=== PATIENT | female | born 1970 | race African-American/Black ===

== ENCOUNTER 2017-11-04 12:04 | Outpatient (CLI) | payer MEDICARE | END 2017-11-04 12:05 | disposition home or self-care (01) | LOC: BICRAD 12:04 | DX: M79.644 Pain in right finger(s) (principal) ==

== ENCOUNTER 2017-11-05 13:18 | Outpatient (CLI) | payer MEDICARE | END 2017-11-05 13:19 | disposition home or self-care (01) | LOC: BICMAMMO 13:18 | PROVIDERS: ATTEND Family Medicine | DX: Z12.31 Encounter for screening mammogram for malignant neoplasm of breast (principal); R92.1 Mammographic calcification found on diagnostic imaging of breast | CPT/HCPCS: 77063; 77067 ==

== ENCOUNTER 2020-01-23 13:14 | Emergency (ER) | payer SELFPAY ==
[2020-01-23] MEDS ORDERED: Acetaminophen 500 MG TAB ONE ×2 (13:26→13:27)
[2020-01-24 10:56] LABS: SARS-CoV-2 MS2 Positive; SARS-CoV-2 N Gene Negative; SARS-CoV-2 S Gene Negative; SARS-CoV-2 by NAA Not Detected (NotDetected); SARS-CoV-2 orf1ab Negative
== END 2020-01-23 14:12 | disposition home or self-care (01) ==
LOC: ERS 13:14
DX: J11.1 Influenza due to unidentified influenza virus with other respiratory manifestations (principal); Z20.828 Contact with and (suspected) exposure to other viral communicable diseases; F17.210 Nicotine dependence, cigarettes, uncomplicated
CPT/HCPCS: 87635; 87804; 99283; U0003

== ENCOUNTER 2021-11-10 10:25 | Outpatient (CLI) | payer MEDICARE, OTHER | END 2021-11-10 10:26 | disposition home or self-care (01) | LOC: BICMAMMO 10:25 | PROVIDERS: ATTEND Family Medicine | DX: Z12.31 Encounter for screening mammogram for malignant neoplasm of breast (principal) | CPT/HCPCS: 77063; 77067 ==

== ENCOUNTER 2023-08-16 03:32 | Emergency (ER) | payer OTHER, MEDICARE ==
[2023-08-16] MEDS ORDERED: methylPREDNISolone Sod Succ/PF 125 MG/2 ML VIAL ONE (03:43)
[2023-08-16] MEDS ORDERED: Ondansetron ODT 4 MG TAB ONE (03:43)
[2023-08-16] MEDS ORDERED: Morphine 4 MG/ML VIAL ONE (03:43)
== END 2023-08-16 04:53 | disposition home or self-care (01) ==
LOC: ERS 03:32
DX: M46.1 Sacroiliitis, not elsewhere classified (principal); F17.210 Nicotine dependence, cigarettes, uncomplicated; Z55.6 Problems related to health literacy
CPT/HCPCS: 96372; 99283; J2270; J2930; Q0162

== ENCOUNTER 2024-03-03 15:24 | Emergency (ER) | payer OTHER ==
[2024-03-03] MEDS ORDERED: Ketorolac Tromethamine 30 MG (1 mL) VIAL ONE (16:27)
[2024-03-03] MEDS ORDERED: Cyclobenzaprine 10 MG TAB ONE (16:27)
[2024-03-03] MEDS ORDERED: traMADol HCl 50 MG TAB ONE (16:28)
[2024-03-03] MEDS ORDERED: Ondansetron ODT 4 MG TAB ONE (16:28)
== END 2024-03-03 17:20 | disposition home or self-care (01) ==
LOC: ERS 15:24
DX: S39.012A Strain of muscle, fascia and tendon of lower back, initial encounter (principal); I10 Essential (primary) hypertension; F17.210 Nicotine dependence, cigarettes, uncomplicated; V49.9XXA Car occupant (driver) (passenger) injured in unspecified traffic accident, initial encounter; Z79.899 Other long term (current) drug therapy
CPT/HCPCS: 96372; 99283; J1885; Q0162

== ENCOUNTER 2024-11-20 09:12 | Emergency (ER) | payer OTHER ==
[2024-11-20] MEDS ORDERED: Ondansetron PF 4 MG/2 ML Vial ONE (09:50)
[2024-11-20 09:59] LABS: #Basophils 0.08 10x3/uL (0.0-0.2); #Eosinophils 0.29 10x3/uL (0.0-0.7); #Monocytes 0.60 10x3/uL (0.11-0.59); #Neutrophils 3.15 10x3/uL (1.40-6.50); %Basophils 1.1 % (0.0-1.0); %Eosinophils 3.9 % (0.0-10.0); %Lymphocytes 44.3 % (21.0-51.0); %Monocytes 8.1 % (0.0-10.0); %Neutrophils 42.5 % (42.0-75.0); Hematocrit 40.5 % (36.0-47.0); Hemoglobin 12.5 g/dL (12.0-16.0); Mean Corpuscular Hemoglobin 27.5 pg (27.0-31.0); Mean Corpuscular Volume 89.0 fL (78.0-98.0); Platelet Count 299 10x3/uL (130-400); Red Blood Cell (RBC) Count 4.55 mill/uL (4.20-5.40); White Blood Cell (WBC) Count 7.42 10x3/uL (4.8-10.8)
[2024-11-20 10:13] LABS: ALT (SGPT) 15 U/L (Less than 34); AST (SGOT) 17 U/L (11-34); Albumin 3.5 g/dL (3.1-4.5); Alkaline Phosphatase 91 U/L (40-110); Anion Gap 10 mmol/L (10-20); BUN (Urea Nitrogen) 10 mg/dL (9.8-20.1); Bilirubin, Total 0.2 mg/dL (0.3-1.2); Calc. Creatinine Clearance 0 mL/min (70-130); Calcium 9.1 mg/dL (7.8-10.44); Carbon Dioxide 23 mmol/L (22-29); Globulin 3.5 g/dL (2.4-3.5); Glucose 95 mg/dL (70-105); Lipase 21 U/L (8-78); Potassium 4.0 mmol/L (3.5-5.1); Sodium 141 mmol/L (136-145)
[2024-11-20 10:15] LABS: Chloride 112 mmol/L (98-107)
[2024-11-20] MEDS ORDERED: Mag-Al 1200 mg/1200 mg/30 ML UDCUP ONE (10:57)
[2024-11-20] MEDS ORDERED: Famotidine/PF 20 mg/2ml Vial ONE ×2 (10:58)
== END 2024-11-20 12:28 | disposition home or self-care (01) ==
LOC: ERS 09:12
DX: K21.9 Gastro-esophageal reflux disease without esophagitis (principal); I10 Essential (primary) hypertension; F17.210 Nicotine dependence, cigarettes, uncomplicated; Z55.6 Problems related to health literacy; Z79.899 Other long term (current) drug therapy
CPT/HCPCS: 36415; 71045; 71275; 74174; 80053; 83690; 84484; 85025; 86850; 86900; 86901; 93005; 96374; 96375